=== PATIENT | female | born 1980 | race Native Hawaiian/Other Pacific Islander ===

== ENCOUNTER 2018-04-29 23:18 | Emergency (ER) | payer SELFPAY ==
[2018-04-29 23:19] VITALS: BMI 38.0
[2018-04-30 00:31] VITALS: TEMP 98.8
--- NOTE | 2018-04-30 01:54 | ED PDOC ---
HPI: Eye Injury/Pain Time Seen by Provider: 04/30/18 00:43 Chief Complaint (Nursing): Eye Problem Chief Complaint (Provider): Eye Problem History Per: Patient History/Exam Limitations: no limitations Onset/Duration Of Symptoms: Hrs Current Symptoms Are (Timing): Still Present Additional Complaint(s): 37 year old female presents to the ED for evaluation of eye irritation. Patient reports that earlier today, she was applying her contact to her left eye, but instead of using saline to rinse it, she used 3% peroxide solution. This caused irritation, redness, and non-purulent discharge to the eye, even after rinsing with water. Otherwise, (-) vision changes, (-) fever. Additionally, patient notes left ankle pain secondary to increased driving with that foot due to her new job at [employer]. Otherwise (-) trauma, (-) injury, (-) numbness. PMD: Mari Simmons Past Medical History Reviewed: Historical Data, Nursing Documentation, Vital Signs Vital Signs: Last Vital Signs Temp 98.8 F 04/29/18 23:28 Pulse 82 04/29/18 23:28 Resp 16 04/29/18 23:28 BP 124/84 04/29/18 23:28 Pulse Ox 96 04/29/18 23:28 - Medical History PMH: No Chronic Diseases Denies: HIV, Chronic Kidney Disease - Surgical History Surgical History: (x1) - Family History Family History: States: Stroke (father), Diabetes (mother, sister, and brother) - Social History Ex-Smoker (has not smoked in the last 12 months): Yes Alcohol: None Drugs: Denies - Home Medications Home Medications: Ambulatory Orders Medication Instructions Recorded Vit Calc,Iron,Folic 1 tab PO DAILY 09/02/16 [ Vitamins] Ibuprofen [Motrin Tab] 600 mg PO Q6 #20 tab 09/05/16 oxyCODONE/Acetaminophen [Percocet 1 tab PO Q6 PRN #25 tab 09/05/16 5/325 mg Tab] Amoxicillin/Clavulanate [Augmentin 1 tab PO Q12H #20 tab 09/13/16 875 MG-125 MG] Clindamycin [Cleocin] 300 mg PO Q12H #20 cap 09/13/16 Ciprofloxacin 0.3% [Ciloxan 0.3% 1 drop OS QID #1 bottle 04/30/18 [facility]] - Allergies Allergies/Adverse Reactions: Allergies Allergy/AdvReac Type Severity Reaction Status Date / Time sulfamethoxazole Allergy RASH Verified 09/02/16 04:31 beseptol Allergy Severe ANAPHYLAXIS Uncoded 09/02/16 04:23 Review of Systems ROS Statement: Except As Marked, All Systems Reviewed And Found Negative Constitutional: Negative for: Fever Eyes: Positive for: Redness (to left eye, with non-purulent discharge). Negative for: Vision Change Musculoskeletal: Positive for: Other (left ankle pain) Neurological: Negative for: Numbness Physical Exam - Reviewed Nursing Documentation Reviewed: Yes Vital Signs Reviewed: Yes - Physical Exam Comments: GENERAL APPEARANCE: Patient is awake, alert, oriented x 3, in no acute distress. SKIN: Warm, dry; (-) cyanosis. HEENT: (-) facial swelling and erythema, (-) facial blisters. LIDS & LASHES: Normal. PUPILS: Pupils equal round and reactive. EOM's: Intact. CONJUNCTIVAE: left eye: (+) mild conjunctival injection. LEFT ANKLE: (-) Tenderness, (-) swelling, (-) ecchymosis, (-) deformity, (-) distal neurovascular deficit. Capillary refill and sensations intact. Remainder of left LE: (-) tenderness, (-) swelling. NEURO AND PSYCH: Mental status as above. - ECG O2 Sat by Pulse Oximetry: 96 (RA) Pulse Ox Interpretation: Normal Medical Decision Making Medical Decision Making: Time: 01:52 Initial Impression: eye irritation Initial Plan: --Urine (-) --Eye irrigation --George wrap to L ankle Patient instructed to follow-up with pmd and her eye doctor in 1-2 days without fail. Advised to take otc motrin prn for pain, apply antibiotic eye drops for prophylaxis. Advised to avoid wearing contacts until eye redness improves. Advised to rest, ice and elevate the ankle. Return to the emergency room at any time for any new or worsening symptoms. Patient states she fully agrees with and understands discharge instructions. States that she agrees with the plan and disposition. Verbalized and repeated discharge instructions and plan. I have given the patient opportunity to ask any additional questions. Scribe Attestation: Documented by Hui Juarez, acting as a scribe for Joanna Talavera PA-C. Provider Scribe Attestation: All medical record entries made by the Scribe were at my direction and personally dictated by me. I have reviewed the chart and agree that the record accurately reflects my personal performance of the history, physical exam, medical decision making, and the department course for this patient. I have also personally directed, reviewed, and agree with the discharge instructions and disposition. Disposition - Clinical Impression Clinical Impression: Chemical conjunctivitis of left eye, Ankle tendinitis - Patient ED Disposition Is Patient to be Admitted: No Counseled Patient/Family Regarding: Diagnosis, Need For Followup, Rx Given - Disposition Referrals: Mari Simmons [Primary Care Provider] - Disposition: Routine/Home Disposition Time: 02:00 Condition: STABLE Additional Instructions: Thank you for letting us take care of you today. You were treated for chemical conjunctivitis L eye, L ankle tendonitis. The emergency medical care you received today was directed towards the acute presenting symptoms. Rest, ice and elevate your ankle. If you were prescribed any medication, please fill it and give as directed. It may take several days for your symptoms to resolve. Return to the Emergency Department at any time if symptoms worsen, do not improve, or if any other problems arise. Please contact your doctor in 2 days for re-evaluation and follow up. Bring any paperwork you were given at discharge with you along with any medications to your follow up visit. Our treatment cannot replace ongoing medical care by a primary care provider (PCP) outside of the emergency department. Thank you for allowing the [facility] team to be part of your care today. 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
[2018-04-30 02:29] VITALS: BP 118/20; PULSE 70; RESP 20
[2018-04-30 02:37] VITALS: O2SAT 96
== END 2018-04-30 02:31 | disposition home or self-care (01) ==
LOC: H.ER 23:18
DX: H10.212 Acute toxic conjunctivitis, left eye (principal); Z88.2 Allergy status to sulfonamides